=== PATIENT | female | born 1965 | race Caucasian/White ===

== ENCOUNTER 2018-09-06 13:17 | Day surgery (SDC) | payer BC, OTHER ==
[~2018-09-06 13:17] MED LIST: Buffered Lidocaine 1% SYRIN* 1 ML/SYRINGE INTRADERM ONE; Famotidine IV* 10 MG/ML 2 ML (20 mg) IV ONE; Lactated Ringers 1000 ML Bag* 1,000 ML IV SCH
[2018-09-06] MEDS ORDERED: Famotidine IV* 10 MG/ML 2 ML (20 mg) ONE (13:58)
[2018-09-06] MEDS ORDERED: Buffered Lidocaine 1% SYRIN* 1 ML/SYRINGE INTRADERM ONE (14:16)
[2018-09-06] MEDS ORDERED: Propofol* 10 MG/ML 20 ML BTL ONE (14:36)
[2018-09-06] MEDS ORDERED: fentaNYL* 50 MCG/ML 2 ML VIAL (100 MCG VIAL) ONE (14:36)
[2018-09-06] MEDS ORDERED: Lidocaine 2% PF * 5 ML VIAL ONE (14:36)
[2018-09-06] MEDS ORDERED: Ondansetron INJ* 2 MG/ML VIAL ONE (14:36)
[2018-09-06] MEDS ORDERED: Dexamethasone IV* 4 MG/ML 1 ML (4 MG) ONE (14:36)
[2018-09-06] MEDS ORDERED: Midazolam* 1 MG/ML 5 ML VIAL (5 MG) ONE (14:37)
[2018-09-06] MEDS ORDERED: Ondansetron INJ* 2 MG/ML VIAL IV PRN (15:42)
[2018-09-06] MEDS ORDERED: Naloxone* 0.4 MG/ML 1 ML VIAL IV PRN (15:42)
[2018-09-06] MEDS ORDERED: oxyCODONE/Acetamin 5/325 MG* TAB PO PRN (15:42)
[2018-09-06 15:54] VITALS: BP 103/81
--- NOTE | 2018-09-06 16:18 | OP ---
OPERATIVE REPORT: DATE OF OPERATION: 09/06/18 DATE OF : 67 ATTENDING SURGEON: Antonino Mccabe MD ENAMEL PULVERIZER: None. ANESTHESIA: General. PRE-OP DIAGNOSIS: Retained tympanostomy tubes. POST-OP DIAGNOSIS: Retained tympanostomy tubes. OPERATIVE PROCEDURE: Removal of tympanostomy tubes under anesthesia. FINDINGS: The patient had retained T tubes. She had focal atrophy of the tympanic membranes around the T tubes and had perforations that had developed that were wider than the diameter of the tubes. DESCRIPTION OF PROCEDURE: This is a 53-year-old woman who had T tubes placed several years ago by an other millinery salesperson and has had chronic problems all of her life with Eustachian tube dysfunction and middle ear fluid. Recently, she has had some issues with drainage and her tympanostomy tubes are redundant because she has larger perforations. The feeling was that she not only did not need the t ubes anymore because of the perforations, but that the tubes were serving as a potential nidus for in fection. The patient is very poorly tolerant to the instrumentation of her ears, so the decision was made to bring her to the operating room for removal. On 09/06/18, the patient was brought her to the operating room. General anesthesia was induced by vein and the patient was masked by the anesthesio logist. The time- out was performed. The left ear was addressed first. The tube was grasped under the microscope with an alligator forceps and removed. The head was then turned and the procedure was repeated on right side. Again, the tube was removed. There was no evidence of active infection. T he tubes were discarded. The patient was then allowed to arise from anesthesia and delivered to the PACU in stable condition. [id number] #: [id number]
== END 2018-09-06 16:18 | disposition home or self-care (01) ==
LOC: OR 13:17
PROVIDERS: ATTEND Otolaryngology
DX: H69.83 Other specified disorders of Eustachian tube, bilateral (principal); H90.6 Mixed conductive and sensorineural hearing loss, bilateral; H72.93 Unspecified perforation of tympanic membrane, bilateral; Z72.0 Tobacco use
CPT/HCPCS: J1100; J2250; J2405; J2704; J3010